=== PATIENT | male | born 1960 | race Caucasian/White ===

== ENCOUNTER → 2017-02-20 | Outpatient (CLI) | payer MEDICARE ==
[~2017-02-20] MED LIST: CHANTIX PO; KLONOPIN0.5 M3; LIPITOR40 MG PO; LISINOPRIL10 MG PO; LOW DOSE ASPIRI81 M1 PO; NEURONTIN300 MG PO; PAXIL PO; PRILOSEC PO
--- NOTE | ~2017-02-20 | MR32 ---
[facility] A Service of [facility] RADIOLOGY TEXT RESULTS PATIENT: ROBERT FRANCO LOCATION: [facility] : 64 UNIT #: [id number] AGE: [address]: Tommy Hodges MD SEX: M ORDER DR: [id number] [facility] [address] [place], [place] [address] [id number] O MR#: [id number] Acc #: [id number] NAME: ROBERT FRANCO : 1960 SEX: M STUDY DATE/TIME: 02/20/2017 15:32 UNIT: [facility] ROOM: STUDY DESCRIPTION: MR Cervical Wo Contrast Attending Physician: Tommy Hodges M.D. Referring Physician: Tommy Hodges M.D. Ordering Physician: Tommy Hodges M.D. Primary Care Physician: Tommy Hodges M.D. MRI CENTER REPORT This report is preliminary unless electronic signature is present. EXAM MRI of the cervical spine without contrast dated 02/20/2017 COMPARISON None. HISTORY Left shoulder posterior severe pain for more than 10 years. Pain and numbness on and off down the left arm. FINDINGS Multisequence multiplanar imaging of the cervical spine was obtained without contrast. Disc osteophyte complex are at multiple levels. Cord demonstrates normal course, caliber and signal. Pre- and paravertebral soft tissues do not demonstrate any significant abnormality. C2-3: Mild disc bulge with mild left facet change. No canal stenosis or neural foraminal narrowing. C3-4: Disc osteophyte complex with slightly prominent left uncinate spur with cwrb-ly-ilslfghp superior left neural foraminal narrowing with a relatively patent inferior aspect. C4-5: Disc osteophyte complex with right uncinate spur, more prominent in the left. Inferior bilateral [id number]-qr-pnvrumty neural foraminal narrowing is seen with relatively patent superior aspect. Borderline size to mild canal stenosis is seen. C5-6: Concentric disc bulge with no significant canal stenosis or neural foraminal narrowing. Mild left facet hypertrophic change. C6-7: Concentric disc bulge with mild canal stenosis. No significant neural foraminal narrowing. Suspicious tiny central protrusion. [facility] A Service of [facility] RADIOLOGY TEXT RESULTS PATIENT: ROBERT FRANCO LOCATION: [facility] : 64 UNIT #: [id number] AGE: [address]: Tommy Hodges MD SEX: M ORDER DR: [id number]: Mild disc bulge without canal stenosis or neural foraminal narrowing. Qxhv-bu-zdsawpjl bilateral facet hypertrophic changes are seen. IMPRESSION 1. Mild degenerative changes are noted at multiple levels as described above. 2. Cord is unremarkable. Dictated by... Ho Carranza M.D. THIS IS AN ELECTRONICALLY VERIFIED REPORT Ho Carranza M.D. at 02/21/2017 4:27 PM CPR/mjmanuel TD: 02/21/2017 08:55 JOB #: [id number] MRI CENTER REPORT Page 1 of 1 COPY
== END | disposition home or self-care (01) ==
LOC: CMRI 14:51
DX: M25.512 Pain in left shoulder (principal); M50.81 Other cervical disc disorders, high cervical region; M50.822 Other cervical disc disorders at C5-C6 level; M50.823 Other cervical disc disorders at C6-C7 level; M50.83 Other cervical disc disorders, cervicothoracic region; M25.78 Osteophyte, vertebrae
CPT/HCPCS: 72141

== ENCOUNTER → 2017-02-26 | Outpatient (CLI) | payer MEDICARE ==
--- NOTE | ~2017-02-26 | MR164 ---
[facility] A Service of [facility] RADIOLOGY TEXT RESULTS PATIENT: ROBERT GAMEZ LOCATION: [facility] : 64 UNIT #: [id number] AGE: [address]: Tommy Hodges MD SEX: M ORDER DR: [id number] [facility]. [place], [place] [address] [id number] O MR#: [id number] Acc #: [id number] NAME: ROBERT GAMEZ : 1960 SEX: M STUDY DATE/TIME: 02/26/2017 20:38 UNIT: [facility] ROOM: STUDY DESCRIPTION: MR Shoulder Wo Contrast Lt Attending Physician: Tommy Hodges M.D. Ordering Physician: Tommy Hodges M.D. Primary Care Physician: Tommy Hodges M.D. MRI CENTER REPORT This report is preliminary unless electronic signature is present. EXAM MRI of the left shoulder. HISTORY Chronic left shoulder pain for over 20 years. No specific injury. Pain getting worse lately. FINDINGS Multiplanar, multiecho imaging was performed of the left shoulder utilizing a high field magnet and dedicated protocol. Bone structure and alignment appears normal. No focal marrow edema. Joint fluid within normal limits. Rotator cuff appears intact without tendinopathy or tear. No muscle atrophy or edema. Superior labrum demonstrates mild degeneration. The biceps anchor and long tendon of the biceps appears intact. Anterior and posterior labrum are unremarkable. Extraarticular soft tissues appear normal. IMPRESSION Mild degeneration of the superior labrum, otherwise unremarkable MRI of the left shoulder. Dictated by... Mary Adam M.D. THIS IS AN ELECTRONICALLY VERIFIED REPORT Mary Adam M.D. at 02/27/2017 3:43 PM CHING/raquel [facility] A Service of [facility] RADIOLOGY TEXT RESULTS PATIENT: ROBERT GAMEZ [facility] 64 UNIT #: [id number] AGE: [address]: Tommy Hodges MD SEX: M ORDER DR: TD: 02/27/2017 14:10 JOB #: [id number] MRI CENTER REPORT Page 1 of 1 COPY
== END | disposition home or self-care (01) ==
LOC: CMRI 19:00
DX: M25.512 Pain in left shoulder (principal); M24.812 Other specific joint derangements of left shoulder, not elsewhere classified
CPT/HCPCS: 73221